=== PATIENT | female | born 1960 | race Hispanic/Latino ===

== ENCOUNTER 2019-06-18 05:44 | Inpatient (IN) | payer BC ==
[2019-06-16 12:58] LABS: BASOPHILS % 0.5 % (0.0-1.0); EOSINOPHILS # (AUTO) 0.4 (0.0-0.4); EOSINOPHILS % 5.3 % (0.0-6.0); HEMATOCRIT 42.1 % (34.2-44.1); HEMOGLOBIN 14.1 g/dL (12.0-16.0); LYMPHOCYTES # (AUTO) 3.1 (1.0-3.2); LYMPHOCYTES % 37.8 % (18.0-39.1); MEAN CORPUSCULAR HEMOGLOBIN 25.8 pg (28-32); MEAN CORPUSCULAR HGB CONC 33.5 g/dL (31-35); MONOCYTES # (AUTO) 0.5 (0.2-0.8); MONOCYTES % 5.6 % (4.4-11.3); NEUTROPHILS # (AUTO) 4.1 (2.1-6.9); NEUTROPHILS % 50.6 % (38.7-80.0); PLATELET COUNT 257 x10e3/uL (140-360); RED BLOOD COUNT 5.47 x10e6/uL (3.6-5.1); RED CELL DISTRIBUTION WIDTH 13.5 % (11.7-14.4)
[2019-06-16 13:20] LABS: BLOOD UREA NITROGEN 13 mg/dL (7-26); BUN/CREATININE RATIO 24 (6-25); CALCIUM 9.4 mg/dL (8.4-10.2); CARBON DIOXIDE 27 mmol/L (22-29); CHLORIDE 103 mmol/L (98-107); CREATININE, SERUM 0.54 mg/dL (0.57-1.11); EST GLOMERULAR FILTRATION RATE > 60 ML/MIN (60-); GLUCOSE 94 mg/dL (74-118); SODIUM 139 mmol/L (136-145)
--- NOTE | 2019-06-16 14:23 | Diagnostic Imaging Report ---
EXAMINATION: CHEST 2 VIEWS INDICATION: Pre-operative COMPARISON: None FINDINGS: LINES/TUBES:None LUNGS:The lungs are moderately inflated. Mild patchy opacity at the left lung base. PLEURA:No pleural effusion or pneumothorax. MEDIASTINUM:The cardiomediastinal silhouette appears normal in size and shape. BONES/SOFT TISSUES:No acute osseous injury. ABDOMEN:No free air under the diaphragm. IMPRESSION: Mild patchy opacity at the left lung base, most likely subsegmental atelectasis Signed by: Katelyn Ruiz MD on 06/16/2019 2:20 PM
[~2019-06-18 05:44] MED LIST: BISOPROLOL FUMAR5 MG PO; CRESTOR10 MG PO; OMEPRAZOLE PO; VASCEPA1 GM PO; VITAMIN E1000 UNI3 PO; ZETIA10 MG PO
--- OUTSIDE RECORDS SUMMARY | 2019-06-18 05:47 | XMS REPORT ---
[facility] Address Unknown Phone Unavailable Care Team Providers Care Sinker Puller Name Role Phone Josephine CIFUENTES Unavailable Unavailable Problems This patient has no known problems. Allergies, Adverse Reactions, Alerts This patient has no known allergies or adverse reactions. Medications This patient has no known medications. Results Test Description Test Time Test Comments Text Results Atomic Results Result Comments CHEST 2 VIEWS 2019-06-16 14:19:00 [place] [address] Patient Name: TIMBO CARRASCO MR #: [id number] : 1960 Age/Sex: 58/F Req #: [id number] [facility] Physician: Ordered by: FELICITA CIFUENTES MD Report #: [id number] Location: OR Room/Bed: Procedure: [id number] DX/CHEST 2 VIEWS Exam Date: 06/16/19 Exam Time: 1347 REPORT STATUS: Signed EXAMINATION: CHEST 2 VIEWS INDICATION: Pre-operative COMPARISON: None FINDINGS: LINES/TUBES:None LUNGS:The lungs are moderately inflated. Mild patchy opacity at the left lung base. PLEURA:No pleural effusion or pneumothorax. MEDIASTINUM:The cardiomediastinal silhouette appears normal in size and shape. BONES/SOFT TISSUES:No acute osseous injury. ABDOMEN:No free air under the diaphragm. IMPRESSION: Mild patchy opacity at the left lung base, most likely subsegmental atelectasis Signed by: Tania Deleon MD on 06/16/2019 2:20 PM Dictated By: TANIA DELEON MD 1420 Transcribed By: NURIA on 06/16/19 1420 COPY TO: FELICITA CIFUENTES MD SCR MAMM BILATERAL SUZANNA CAD DIGITAL 2019-05-19 11:57:44 - SCR MAMM BILATERAL SUZANNA CAD DIGITALBILATERAL DIGITAL SCREENING MAMMOGRAM 3D/2D WITH CAD: 05/16/2019CLINICAL: Asymptomatic. Digital breast tomosynthesis was performed in addition to routine CC and MLO views. Current mammographic images were evaluated by either a [employer] Micro M-Vu or a [employer] ImageChecker CAD (computer aided detection system). Comparison is made to exams dated 02/11/2018 mammogram, 2016 mammogram, and 11/15/2015 mammogram - [facility]-. The tissue of both breasts is heterogeneously dense. This may lower the sensitivity of mammography. There is a stable benign-appearing asymmetry in the right breast and few benign calcifications in the breasts. Additionally, there is a biopsy clip in the left breast. No suspicious mass, architectural distortion, malignant type calcification, or lymph node abnormality detected. Breast architecture is stable compared to prior exams.IMPRESSION: BENIGNThere is no mammographic evidence of malignancy. Resume annual screening mammography in one year. Your patient's mammogram demonstrates that she has dense breast tissue. This can hide abnormalities. In compliance with [place] law ([place]'s Law), your patient has been sent a letter which informs her of her breast density and notifies her that, depending on her individual risk factors for the development of breast cancer, she might benefit from additional screening tests such as ultr asound. Dense breast tissue, in and of itself, is a relatively common condition. Therefore, this information is not provided to cause undue concern, but rather to raise awareness and to promote discussion regarding the presence of other risk factors, in addition to dense breast tissue.Jose Rafael Palmer M.D. rb/:05/19/2019 11:57:44 [employer] Blocking Operator: Silvia Barcenas , [facility]-FWletter sent: BIRADS 1-2 Normal Mammogram BI-RADS: 2 Benign
[2019-06-18] MEDS ORDERED: ESOMEPRAZOLE PO (06:50)
[2019-06-18] MEDS ORDERED: VITAMIN D1000 UNI1 PO (06:50)
--- NOTE | 2019-06-18 07:10 | NUR ---
SPIRITUAL CARE - Pre-Surgery Assessment: Pt in bed. Pt's at bedside. Pt reported supportive attention from family and friends. Intervention: I provided pastoral presence, hospitality, and sympathetic listening. I acquainted pt with availability of mattress filler while hospitalized. Outcome: Pt expressed appreciation for visit. No need for follow up indicated at this time. [facility] Spiritual Care Department O: [phone] Pager: [phone] ([phone] number calling from)
[2019-06-18] MEDS ORDERED: BUPIVACAINE 0.25%/EPI 30ML SDV INJ ONE (08:47)
[2019-06-18] MEDS ORDERED: ONDANSETRON HCL INJ 2MG/ML 2ML 2 MG/ML VIAL IV PRN (11:15)
[2019-06-18] MEDS: PANTOPRAZOLE 40 MG 10ML VIAL IV SCH (11:15)
[2019-06-18] MEDS ORDERED: ACETAMINOPHEN 1000 MG/100 ML IV PRN (11:15)
[2019-06-18] MEDS ORDERED: HYDROMORPHONE 2MG/ML 2 MG/ML ML ONE (12:00)
[2019-06-18] MEDS ORDERED: FENTANYL CITRATE/PF 100MCG/2 ML INJ ONE ×3 (12:29→15:05)
--- NOTE | 2019-06-18 13:40 | NUR ---
The pt. arrives [facility] via stretcher with o2 at 2l n c and iv fluids ,shaunna drain and abd binder intact. The drainage is sanguinous and the binder is intact with no drainage noted The pt. is maintained n p o and a art is intact with yellow urine.
[2019-06-18] MEDS ORDERED: LIDOCAINE HCL 2% LOCAL INJ 5 ML SDV VIAL INJ ONE (13:56)
[2019-06-18] MEDS ORDERED: CEFAZOLIN SOD 1 GM VIAL ONE (13:56)
[2019-06-18] MEDS ORDERED: DEXAMETHASONE SOD PHOS INJ 4 MG/ML VIAL ONE (13:56)
[2019-06-18] MEDS ORDERED: NEOSTIGMINE 5 MG/5ML SYR ONE (13:56)
[2019-06-18] MEDS ORDERED: ONDANSETRON HCL INJ 2MG/ML 2ML 2 MG/ML VIAL ONE (13:56)
[2019-06-18] MEDS ORDERED: PROPOFOL IV EMULSION 10 MG/ML 20 ML VIAL ONE (13:56)
[2019-06-18] MEDS ORDERED: GLYCOPYRROLATE INJ 1MG/ 5 ML SYR ONE (13:56)
[2019-06-18] MEDS ORDERED: SEVOFLURANE INHAL SOLN 250 ML PEN BTL ONE (13:56)
[2019-06-18 13:57] VITALS: BP 101/70
[2019-06-18] MEDS: SODIUM CHLORIDE 0.9% 1000ML 1,000 ML IV SCH ×2 (14:30→21:49)
[2019-06-18] MEDS: CEFAZOLIN SOD 1 GM/NS 50ML 50 ML IV SCH ×2 (14:30→21:50)
[2019-06-18] MEDS ORDERED: MIDAZOLAM HCL 2 MG/2 ML VIAL ONE (15:05)
[2019-06-18] MEDS ORDERED: MORPHINE SULFATE INJ 10 MG/ML ONE (15:05)
[2019-06-18] MEDS ORDERED: KETAMINE HCL INJ 50 MG/ML 10 ML VIAL ONE (15:05)
[2019-06-18 15:44] VITALS: BP 101/70
[2019-06-18 16:44] VITALS: BP 116/64
--- NOTE | 2019-06-18 17:02 | Operative Report ---
DATE OF PROCEDURE: 06/18/2019 SURGEON: Miah Lee MD PREOPERATIVE DIAGNOSIS: Incarcerated ventral hernia. POSTOPERATIVE DIAGNOSIS: Multiple incarcerated ventral hernias. OPERATION PERFORMED: Repair of multiple incarcerated ventral hernias with mesh. CREDIT ASSISTANT: LAMINE Cheney. ANESTHESIA: General. COMPLICATIONS: None. ESTIMATED BLOOD LOSS: Minimal. DESCRIPTION OF PROCEDURE: With the patient lying in bed in the supine position under good general anesthesia, the abdomen was prepped with Betadine solution and draped in the usual manner. The old midline periumbilical incision was then reopened and incision was carried down through the subcutaneous tissue in the periumbilical region above and below. Immediately, multiple defects were encountered, where there was omentum stuck inside of multiple hernia defects. The fascia was then identified lateral to all of the defects on both sides and the umbilicus was then detached from the fascia. All of the defects were then identified and dissected with normal fascia all the way around. After this was done, each one of them individually was opened. The incarcerated omentum was divided between 2-0 Vicryl ties and resected. There was probably 7 or 8 different defects along the midline all the way above the old incision. Once all of the defects were reduced, we then able to get access to the intraabdominal cavity. 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 We decided the only way to do repair would be to do an intraabdominal mesh to cover the entire area and then close the attenuated fascia over the mesh. We did not think that any kind of an onlay repair would hold in this circumstance. The abdominal cavity was then cleared of all adhesions to the undersurface of the fascia all the way around. Once this was done, a 10 x 12 cm Physiomesh was then placed intra-abdominally and anchored on all 6 corners using #1 Prolene and the skirt was then tacked circumferentially with the Tacker. This gave us a good reinforcement of the area and the mesh was laying nicely. After this was done, all of the defects were then closed reapproximated primarily using interrupted sutures of 0 Ethibond. The whole area was then thoroughly irrigated. Perfect hemostasis was ascertained. The umbilicus then tacked back down to the midline fascia with 3-0 Vicryl. A 10 flat Howard-Mukherjee drain was left in the wound and brought out through a separate stab wound incision. The subcutaneous tissue was approximated with 2-0 and 3-0 Vicryl and the skin was closed with clips. A dressing was applied. The sponge, lap, and needle count was correct. The patient tolerated the procedure well and returned to the recovery room in stable condition. MD CYN Brown/TERA /[id number]
[2019-06-18] MEDS: HYDROMORPHONE 1MG/1ML INJ IV PRN ×2 (17:21→22:14)
--- NOTE | 2019-06-18 17:32 | NUR ---
The pt. is awake and comp of abd pain 01/20. Pain med given and she was advised to remain in bed at this time.
[2019-06-18 20:00] VITALS: BP 114/64
[2019-06-18] MEDS: EZETIMIBE 10 MG TAB PO SCH (21:50)
[2019-06-18 23:55] VITALS: BP 102/60
[2019-06-19 04:00] VITALS: BP 100/55
[2019-06-19 05:52] LABS: BASOPHILS % 0.2 % (0.0-1.0); EOSINOPHILS % 0.4 % (0.0-6.0); HEMOGLOBIN 11.2 g/dL (12.0-16.0); LYMPHOCYTES # (AUTO) 2.1 (1.0-3.2); LYMPHOCYTES % 23.4 % (18.0-39.1); MEAN CORPUSCULAR HEMOGLOBIN 25.6 pg (28-32); MEAN CORPUSCULAR VOLUME 80.1 fL (81-99); MONOCYTES # (AUTO) 0.8 (0.2-0.8); MONOCYTES % 8.4 % (4.4-11.3); NEUTROPHILS # (AUTO) 6.2 (2.1-6.9); NEUTROPHILS % 67.3 % (38.7-80.0); PLATELET COUNT 215 x10e3/uL (140-360); RED BLOOD COUNT 4.37 x10e6/uL (3.6-5.1); RED CELL DISTRIBUTION WIDTH 13.8 % (11.7-14.4)
[2019-06-19 06:07] LABS: ANION GAP 11.5 mmol/L (8-16); BLOOD UREA NITROGEN 9 mg/dL (7-26); BUN/CREATININE RATIO 18 (6-25); CALCIUM 7.9 mg/dL (8.4-10.2); CARBON DIOXIDE 26 mmol/L (22-29); CHLORIDE 105 mmol/L (98-107); CREATININE, SERUM 0.51 mg/dL (0.57-1.11); EST GLOMERULAR FILTRATION RATE > 60 ML/MIN (60-); GLUCOSE 126 mg/dL (74-118); POTASSIUM 3.5 mmol/L (3.5-5.1); SODIUM 139 mmol/L (136-145)
[2019-06-19] MEDS: SODIUM CHLORIDE 0.9% 1000ML 1,000 ML IV SCH ×2 (07:15→15:36)
[2019-06-19 07:49] VITALS: BP 106/64
[2019-06-19 08:25] VITALS: BP 106/64
[2019-06-19] MEDS: HYDROMORPHONE 1MG/1ML INJ IV PRN ×3 (08:55→19:45)
--- NOTE | 2019-06-19 09:38 | NUR ---
iv dc pressure dressing applied tele dc discharge instructions given and prescription pt verbalized understanding pt is now waiting for ride home Addendum: 06/19/19 at 1132 by Karley Diaz RN wrong pt charting
[2019-06-19] MEDS: PANTOPRAZOLE 40 MG 10ML VIAL IV SCH (11:58)
[2019-06-19 12:08] VITALS: BP 108/71
[2019-06-19] MEDS: ACETAMINOPHEN 1000 MG/100 ML IV SCH ×2 (15:06→21:39)
[2019-06-19 16:03] VITALS: BP 117/75
[2019-06-19 20:48] VITALS: BP 136/86
[2019-06-19] MEDS: EZETIMIBE 10 MG TAB PO SCH (21:39)
[2019-06-20] VITALS (7 sets, daily range): BP systolic 114–153; BP diastolic 73–92
[2019-06-20] MEDS: SODIUM CHLORIDE 0.9% 1000ML 1,000 ML IV SCH ×3 (00:44→10:40)
[2019-06-20] MEDS: ACETAMINOPHEN 1000 MG/100 ML IV SCH (06:00)
--- NOTE | 2019-06-20 07:00 | NUR ---
BEDSIDE ROUNDS COMPLETE NO DISTRESS NOTED,UPDATED ON POC VOICED UNDERSTANDING, JENNIFER PAIN AT THIS TIME, IVF INFUSING TO R HAND 20G NO SS OF INFILTRATION NOTED, NO OTHER CO VOICED CALL LIGHT IN REACH WILL CONTINUE TO MONITOR
--- NOTE | 2019-06-20 07:00 | NUR ---
PT RESTING IN BED WITH NO S/S OF DISTRESS.RESPIRATIONS EVEN/NON LABORED.SOY DC'D PER ORDER.PT DUE TO VOID.CALL LIGHT WITHIN EASY REACH.
--- NOTE | 2019-06-20 07:15 | NUR ---
REPORT GIVEN TO ONCOMING NURSE.WALKING ROUNDS MADE.PT RESTING IN BED WITH NO S/S OF DISTRESS.
--- NOTE | 2019-06-20 09:00 | NUR ---
PT VOIDED CLEAR YELLOW URINE
[2019-06-20] MEDS: HYDROMORPHONE 1MG/1ML INJ IV PRN (10:38)
[2019-06-20] MEDS: PANTOPRAZOLE 40 MG 10ML VIAL IV SCH (12:19)
[2019-06-20] MEDS: HYDROCODONE/APAP 7.5MG-325MG 1 EA TAB PO PRN (15:20)
[2019-06-20] MEDS ORDERED: MAGNESIUM HYDROXIDE 30 ML UDC PO ONE (15:45)
[2019-06-20] MEDS: EZETIMIBE 10 MG TAB PO SCH (21:00)
[2019-06-20] MEDS: BISACODYL 10 MG SUPP PR SCH (21:16)
[2019-06-21] VITALS: BP 146/88
--- NOTE | 2019-06-21 00:28 | NUR ---
PT REPORTED THAT SHE PASSED GAS AND HAD BOWEL MOVEMENT.NO C/O PAIN AT THIS TIME. AT BEDSIDE.CALL LIGHT WITHIN EASY REACH.
[2019-06-21] MEDS: SODIUM CHLORIDE 0.9% 1000ML 1,000 ML IV SCH (00:58)
[2019-06-21 04:05] VITALS: BP 109/61
[2019-06-21] MEDS: HYDROCODONE/APAP 7.5MG-325MG 1 EA TAB PO PRN ×2 (06:08→14:23)
--- NOTE | 2019-06-21 07:30 | NUR ---
Received patient this morning, a/ox3, OOB sitting on commode and had a BM x2 this morning, no resp ditress, abdominal binder in place, will monitor.
[2019-06-21 07:56] VITALS: BP 122/77
[2019-06-21] MEDS: BISACODYL 10 MG SUPP PR SCH (08:00)
[2019-06-21 08:34] VITALS: BP 122/77
--- NOTE | 2019-06-21 08:47 | NUR ---
Patient refusing suppository because she had 2 loose stools this morning.
[2019-06-21] MEDS: PANTOPRAZOLE 40 MG 10ML VIAL IV SCH (10:57)
[2019-06-21] MEDS: HYDROMORPHONE 1MG/1ML INJ IV PRN (11:01)
[2019-06-21] MEDS ORDERED: BACTRIM DS TAB1 EACH PO (11:22)
[2019-06-21] MEDS ORDERED: NORCO 7.5-3251 EACH PO (11:23)
--- NOTE | 2019-06-21 11:27 | NUR ---
Rounds by surgeon and ok to discharge patient after lunch if tolerate regular diet
[2019-06-21 12:02] VITALS: BP 112/68
--- NOTE | 2019-06-21 15:22 | NUR ---
Patient a/ox3, tolerated regular diet, medicated for abdl pain, KOLBY drain in place and educated on care of KOLBY drain, returned demonstration. Provided with discharge summary and prescriptions, IV line removed and cath tip in place, dressing applied and patient discharged.
== END 2019-06-21 15:14 | disposition home or self-care (01) | DRG 355 ==
LOC: OR 05:44 → PACU V 11:19 → MED/SURG 13:56
PROVIDERS: ADMIT Surgery; ATTEND Surgery
PROC: 0WUF0JZ Supplement Abdominal Wall with Synthetic Substitute, Open Approach (ICD-10-PCS; principal; 2019-06-18 07:30)
DX: K43.9 Ventral hernia without obstruction or gangrene (principal); I10 Essential (primary) hypertension; K21.9 Gastro-esophageal reflux disease without esophagitis; K58.9 Irritable bowel syndrome, unspecified; I25.2 Old myocardial infarction
CPT/HCPCS: 36415; 71046; 80048; 85025; 93005; J0690; J1100; J1170; J2001; J2250; J2270; J2405; J3010; J7030

== ENCOUNTER 2025-04-30 08:03 | Emergency (ER) | payer BC, OTHER ==
[~2025-04-30] VITALS: Ht 139.7 cm; Wt 55.8 kg
[~2025-04-30 08:03] MED LIST changes: +BACTRIM DS TAB1 EACH PO; +ESOMEPRAZOLE PO; +NORCO 7.5-3251 EACH PO; +VITAMIN D1000 UNI1 PO
[2025-04-30 08:15] VITALS: PULSE 98; RESP 16; TEMP 97
[2025-04-30] MEDS: TRAMADOL HCL 50 MG TAB PO ONE (08:47)
[2025-04-30] MEDS ORDERED: ULTRAM 50MG50 MG PO (10:59)
[2025-04-30 12:41] VITALS: BP 152/89; PULSE 94; RESP 20; TEMP 98; O2SAT 96
[2025-04-30] MEDS ORDERED: ELIQUIS5 MG PO (14:19)
[2025-04-30] MEDS ORDERED: ELIQUIS2.5 MG PO (14:51)
== END 2025-04-30 12:20 | disposition home or self-care (01) ==
LOC: FSED 08:17
DX: S72.455A Nondisplaced supracondylar fracture without intracondylar extension of lower end of left femur, initial encounter for closed fracture (principal); S82.142A Displaced bicondylar fracture of left tibia, initial encounter for closed fracture; S93.502A Unspecified sprain of left great toe, initial encounter; W01.0XXA Fall on same level from slipping, tripping and stumbling without subsequent striking against object, initial encounter; Y93.01 Activity, walking, marching and hiking; Y92.89 Other specified places as the place of occurrence of the external cause; I10 Essential (primary) hypertension; K21.9 Gastro-esophageal reflux disease without esophagitis; I25.2 Old myocardial infarction; Z86.12 Personal history of poliomyelitis
CPT/HCPCS: 99284